=== PATIENT | female | born 1980 | race Caucasian/White ===

== ENCOUNTER 2016-07-06 11:19 | Emergency (ER) | payer MEDICAID ==
[~2016-07-06] VITALS: Ht 157.5 cm; Wt 83.2 kg
[~2016-07-06 11:19] MED LIST: SERT50TA PO
[2016-07-06] MEDS ORDERED: DIAZEPAM 5 MG TABLET PO ONE ×2 (12:30→13:30)
[2016-07-06] MEDS ORDERED: KETOROLAC 30 MG/1 ML IM ONE (12:30)
[2016-07-06] MEDS ORDERED: OXYcodone/APAP 5/325MG TABLET PO ONE (12:30)
[2016-07-06] MEDS ORDERED: DIAZEPAM 5 MG TABLET ONE ×2 (12:32→13:19)
[2016-07-06] MEDS ORDERED: KETOROLAC 30 MG/1 ML ONE (12:32)
[2016-07-06] MEDS ORDERED: OXYcodone/APAP 5/325MG TABLET ONE (12:32)
[2016-07-06 13:21] VITALS: BP 109/63
== END 2016-07-06 13:25 | disposition home or self-care (01) ==
LOC: ED 13:10
DX: S39.012A Strain of muscle, fascia and tendon of lower back, initial encounter (principal); M54.16 Radiculopathy, lumbar region; M19.90 Unspecified osteoarthritis, unspecified site; G89.29 Other chronic pain; X50.9XXA Other and unspecified overexertion or strenuous movements or postures, initial encounter; Y93.89 Activity, other specified; Y92.89 Other specified places as the place of occurrence of the external cause; Y99.8 Other external cause status
CPT/HCPCS: 96372; 99284; J1885

== ENCOUNTER 2016-07-16 15:49 | Emergency (ER) | payer MEDICAID ==
[~2016-07-16] VITALS: Ht 157.5 cm; Wt 82.4 kg
[2016-07-16 15:55] VITALS: BP 126/87
[2016-07-16] MEDS ORDERED: METHOCARBAMOL 750 MG TABLET ONE (16:42)
[2016-07-16] MEDS ORDERED: OXYcodone/APAP 5/325MG TABLET ONE (16:42)
[2016-07-16] MEDS ORDERED: OXYcodone/APAP 5/325MG TABLET PO ONE (17:00)
[2016-07-16] MEDS ORDERED: METHOCARBAMOL 750 MG TABLET PO ONE (17:00)
[2016-07-16] MEDS ORDERED: LORazepam 1MG TABLET ONE (19:12)
[2016-07-16] MEDS ORDERED: LORazepam 1MG TABLET PO ONE (19:30)
== END 2016-07-16 19:39 | disposition home or self-care (01) ==
LOC: ED 19:33
DX: S13.4XXA Sprain of ligaments of cervical spine, initial encounter (principal); S33.5XXA Sprain of ligaments of lumbar spine, initial encounter; S00.93XA Contusion of unspecified part of head, initial encounter; S40.011A Contusion of right shoulder, initial encounter; S50.11XA Contusion of right forearm, initial encounter; Z98.51 Tubal ligation status; W10.9XXA Fall (on) (from) unspecified stairs and steps, initial encounter; Y93.89 Activity, other specified; Y92.89 Other specified places as the place of occurrence of the external cause; Y99.9 Unspecified external cause status
CPT/HCPCS: 70450; 72050; 72110; 99284